=== PATIENT | female | born 1950 | race Caucasian/White ===

== ENCOUNTER 2017-11-15 16:47 | Emergency (ER) | payer OTHER, MEDICARE, BC ==
--- NOTE | 2017-11-15 17:16 | ED ---
Upper Extremity Pain - HPI Summary HPI Summary: 67F presents with right shoulder injury today. She states she slipped and fell onto her right shoulder. She is limited range of motion right shoulder. She denies any numbness or tingling. She denies any previous injury to this area. She states this occurred at 4. States her feet got caught underneath her and she tripped and landed on the right side. She denies any chest pain or shortness of breath. This was a mechanical fall. She has no medical conditions. - History of Current Complaint Chief Complaint: Dilia Stated Complaint: FALL RT SHOULDER INJURY Time Seen by Provider: 11/15/17 16:54 - Allergies/Home Medications Allergies/Adverse Reactions: Allergies Allergy/AdvReac Type Severity Reaction Status Date / Time No Known Allergies Allergy Verified 11/15/17 19:50 PMH/Surg Hx/FS Hx/Imm Hx Endocrine/Hematology History: Denies: Hx Anticoagulant Therapy Cardiovascular History: Denies: Hx Myocardial Infarction Musculoskeletal History: Denies: Hx Osteoporosis - Cancer History Hx Chemotherapy: No Hx Radiation Therapy: No - Immunization History Date of Influenza Vaccine: 05/2017 Immunizations Up to Date: Yes Infectious Disease History: No Infectious Disease History: Denies: Traveled Outside the [place] in Last 30 Days - Family History Known Family History: Positive: Hypertension - Social History Alcohol Use: Daily Alcohol Amount: glass of red wine at night Substance Use Type: Reports: None Smoking Status (MU): Never Smoked Tobacco Review of Systems Negative: Fever Negative: Chest Pain Negative: Shortness Of Breath Positive: Myalgia - right shoulder pain All Other Systems Reviewed And Are Negative: Yes Physical Exam Triage Information Reviewed: Yes Vital Signs On Initial Exam: Initial Vitals Temp Pulse Resp BP Pulse Ox 98.0 F 90 15 187/85 99 11/15/17 16:50 11/15/17 16:50 11/15/17 16:50 11/15/17 16:50 11/15/17 16:50 Vital Signs Reviewed: Yes Appearance: Positive: Well-Appearing Skin: Positive: Warm, Dry Head/Face: Positive: Normal Head/Face Inspection Eyes: Positive: Normal, Conjunctiva Clear Respiratory/Lung Sounds: Positive: Clear to Auscultation, Breath Sounds Present Cardiovascular: Positive: Normal, RRR Musculoskeletal: Positive: Other - good pulses, tenderness over right shoulder, capillary refill<2 secs, deformity to right shoulder, tenderness over right clavicle Neurological: Positive: Normal Psychiatric: Positive: Normal Procedures - Joint Reduction Joint Reduction Site: shoulder (R) Conscious Sedation: Yes Reduction Attempts: 2 Pre-Procedure NV Exam: Yes Post Joint Reduction Film: joint reduced Diagnostics - Vital Signs Vital Signs Temp Pulse Resp BP Pulse Ox 11/15/17 16:50 98.0 F 90 15 187/85 99 - Laboratory Lab Statement: Any lab studies that have been ordered have been reviewed, and results considered in the medical decision making process. - Radiology shoulder Xray Interpretation: Positive (See Comments) - IMPRESSION: Anterior inferior dislocation of the humeral head without fracture. Radiology Interpretation Completed By: Radiologist reduction Xray Interpretation: Positive (See Comments) - shoulder reduced, clacivcle fracture Radiology Interpretation Completed By: Radiologist Course/Dx - Course Course Of Treatment: 67F presents with right shoulder injury today. She states she slipped and fell onto her right shoulder. She is limited range of motion right shoulder. She denies any numbness or tingling. She denies any previous injury to this area. She states this occurred at 4. States her feet got caught underneath her and she tripped and landed on the right side. She denies any chest pain or shortness of breath. This was a mechanical fall. She has no medical conditions. on exam has deformity to right shoulder, neurovascular intact. xray shows dislocation and clavicle fracture. with dr Salgado help reduced shoulder. place in sling will have follow-up with ortho about shoulder dislocation and clavicle fracture. Gave pain medication. Patient understands and agrees with plan. - Diagnoses Differential Diagnosis/HQI/PQRI: Positive: Fracture (Closed), Strain, Sprain Provider Diagnoses: Dislocation of right shoulder joint, Right clavicle fracture Discharge - Discharge Plan Condition: Good Disposition: HOME Prescriptions: oxyCODONE/Acetamin 5/325 MG* [Percocet 5/325 TAB*] 1 tab PO Q6H PRN #18 tab MDD 4 PRN Reason: Pain Patient Education Materials: Clavicle Fracture (ED), Shoulder Dislocation (ED) Referrals: Sam Cha MD [Primary Care Provider] - Nicole Mclaughlin MD [Medical Doctor] - Additional Instructions: Keep in sling Take Tylenol every 6 hours as needed for pain, use narcotic for break through pain Ice Follow up with ortho Return to ED if develop any new or worsening symptoms
[2017-11-15] MEDS ORDERED: Morphine INJ* 4 MG/ML 1 ML SYRINGE (NEW SYRINGE VERSION) IV ONE ×2 (17:19→18:42)
[2017-11-15] MEDS ORDERED: Ketorolac INJ* 30 MG/ML 1 ML VIAL IV PUSH ONE (17:19)
[2017-11-15] MEDS ORDERED: Ondansetron INJ* 2 MG/ML VIAL IV ONE (17:20)
--- NOTE | 2017-11-15 18:04 | RAD ---
Indication: Right arm pain. 2 views of the right arm demonstrates anterior inferior dislocation of the humerus. No fracture is identified. IMPRESSION: Anterior inferior dislocation of the humeral head without fracture.
--- NOTE | 2017-11-15 18:05 | RAD ---
Indication: Right shoulder pain. 4 views of the right shoulder demonstrates anterior inferior dislocation of the right humeral head. AC joint arthritis is noted. IMPRESSION: Anterior inferior dislocation of the right humeral head.
--- OUTSIDE RECORDS SUMMARY | 2017-11-15 18:37 | XMS REPORT ---
:1950 External Reference #:[id number] Author Organization [facility] Address [address] [place] [address] Phone [phone] Care Team Providers Name Role Phone Sam Cha MD Care Team Information Cardiograph Operator Unavailable Sam Cha MD Primary Care Physician Unavailable Payers Type Date Identification Numbers Payment Provider Subscriber Medicare Primary Effective: Policy Number: Medicare - Bswny Loki Barroso 2016 [id number] PayID: [id number] [address] [place] [address] [facility] Effective: 2016 Policy Number: [employer] Loki Barroso [id number] Group Name: BC/BS of [facility] 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 Cigarette Use Never Smoked Cigarettes ETOH Use Currently consumes alcohol 1-2 glasses of wine per night Allergies, Adverse Reactions, Alerts Date Description Reaction Status Severity Comments 05/28/2017 NKDA active Medications Medication Date Status Form Strength Qnty SIG Indications Ordering Provider Policosanol Active Capsules 10mg Unknown 000 Calcium 600+D Active Tablets 600-800 Unknown 000 Turmeric Active Capsules 500mg two Unknown 000 daily No Active Hx Unknown Medications 017 - 017 Kasia-D 12 00/00/0 Hx Tablets ER 60-120mg Unknown Hour Allergy 000 - 12HR & Congestion 018 Glucosamine /0 Hx Tablets Unknown Chondroitin 000 - Complex/MSM Double Strength 018 Womens 50+ /0 Hx Tablets 1 by Unknown Multi Vitamin 000 - mouth & Mineral every Formula 018 day Motrin PM /0 Hx Tablets 200-38mg Unknown 000 - 018 Immunizations CPT Code Status Date Vaccine Lot # [id number] Given 06/04/2017 Zoster Vaccine [id number] Given 06/04/2017 Tdap (Adacel) [id number] Given 06/04/2017 Prevnar-13 Pneumococcal Conjugate Vaccine [id number] Given 05/28/2017 Influenza Vaccine High Dose PF [id number] Vital Signs Date Vital Result Comment 11/06/2017 Weight 133.00 lb Weight in kg's 60.329 BP Systolic 150 mmHg BP Diastolic 78 mmHg Heart Rate 80 /min Body Temperature 97.4 F Respiratory Rate 16 /min O2 % BldC Oximetry 98 % 06/04/2017 Weight 134.00 lb Weight in kg's 60.782 BP Systolic 140 mmHg BP Diastolic 78 mmHg Heart Rate 72 /min Body Temperature 97.8 F Respiratory Rate 16 /min Head Circumference in cm's 162.6 cm Head Circumference 64 inches 05/28/2017 Weight 135.00 lb Weight in kg's 61.236 BP Systolic 140 mmHg BP Diastolic 78 mmHg Heart Rate 76 /min Body Temperature 99.1 F Respiratory Rate 16 /min Height 64 inches 5'4" BMI (Body Mass Index) 23.2 kg/m2 Results Test Date Test Result H/L Range Note Lipid Profile (Trig/Chol/HDL) 06/04/2017 Triglycerides 234 mg/dL 1 Cholesterol 271 mg/dL 2 HDL Cholesterol 59.9 mg/dL 3 LDL Cholesterol 164 mg/dL 4 Laboratory test finding 06/04/2017 Hepatitis C Antibody Nonreactive Nonreactive 5 Hemoglobin A1c (Glyco HGB) 5.5 % Less than 6.0 6 1 Desirable <150 Borderline high 150-199 High 200-499 Very High >500 2 Desirable <200 Borderline high 200-239 High >239 3 Low <40 Desirable: 40-60 High: >60 4 Desirable: <100 mg/dL Near Optimal: 100-129 mg/dL Borderline High: 130-159 mg/dL High: 160-189 mg/dL Very High: >189 mg/dL 5 [id number] Therapeutic target for the treatment of diabetes Mellitus patients is <7% HBA1C, and in selective patients <6.0%.Please refer to [place] [employer] Diabetic care guidelines for further information. Procedures Description No Information Encounters Type Date Location Provider CPT E/M Dx Office Visit 06/04/2017 1:00p Main Office Sam Cha MD [id number] Z00.8 Z13.820 Z13.6 R03.0 Z23 Office Visit 05/28/2017 8:45a [place] [id number] H81.12 Z23 Plan of Care 11/06/2017 - Yasmin Go, NPJ01.90 Acute sinusitis, unspecifiedComments:No acute concerns today.Suspected viral sinusitis as symptoms have been present for <10 days, no fever, no purulent nasal discharge, and no "double worsening ". Discussed supportive care including humidification, nasal rinsing, ibuprofen/ Tylenol, and nasal decongestants. Educated on new/worsening symptomsPatient agrees to call/return if new/worsening symptoms of failure to improve
[2017-11-15] MEDS ORDERED: Morphine INJ* 2 MG/ML 1 ML CARPUJECT IV ONE (19:00)
[2017-11-15] MEDS ORDERED: fentaNYL* 50 MCG/ML 2 ML VIAL (100 MCG VIAL) IV SLOW PU ONE (19:56)
[2017-11-15] MEDS ORDERED: Midazolam* 1 MG/ML 5 ML VIAL (5 MG) SLOW PUSH ONE (19:56)
[2017-11-15] MEDS ORDERED: NS 0.9% 1000 ML* 1,000 ML IV ONE (19:56)
--- NOTE | 2017-11-15 21:05 | RAD ---
Indication: Right shoulder dislocation. 2 views of the right shoulder demonstrates reduction of previously identified anterior inferior dislocation of the humeral head. IMPRESSION: Reduction of anterior inferior dislocation of the humeral head.
[2017-11-15 21:31] VITALS: BP 146/76
== END 2017-11-15 21:43 | disposition home or self-care (01) ==
LOC: ED 16:47
DX: S43.004A Unspecified dislocation of right shoulder joint, initial encounter (principal); S42.001A Fracture of unspecified part of right clavicle, initial encounter for closed fracture; W01.0XXA Fall on same level from slipping, tripping and stumbling without subsequent striking against object, initial encounter; Y92.9 Unspecified place or not applicable
CPT/HCPCS: 23650; 96360; 96374; 96375; 96376; 99285; J1885; J2250; J2270; J2405; J3010